=== PATIENT | male | born 1940 | race Caucasian/White ===

== ENCOUNTER 2017-11-16 06:49 | Inpatient (IN) | payer OTHER ==
[~2017-11-16] VITALS: Ht 175.3 cm; Wt 115.7 kg
[~2017-11-16 06:49] MED LIST: HYDR25TA4 PO; LISI40TA PO; METF-370 PO; METO-158 PO; OMEP20TA PO; RIV15T PO; SIMV-13 PO; TEMA30CA PO
[2017-11-16] MEDS ORDERED: fentaNYL CITRATE 100 MCG/2 ML VL ONE (07:22)
[2017-11-16] MEDS ORDERED: MIDAZOLAM HCL 1MG/1ML-2 ML VIAL ONE ×2 (07:23→07:30)
[2017-11-16] MEDS ORDERED: LIDOCAINE 2%HCL (LOCAL ANESTH.) INJ 10ml MDV ONE ×2 (07:24→08:06)
[2017-11-16] MEDS ORDERED: LIDOCAINE VISCOUS 2% 15ML UD PO ONE (07:30)
[2017-11-16] MEDS ORDERED: HYDROmorphone HCL 2 MG/ML VL ONE (08:55)
[2017-11-16] MEDS ORDERED: DRON400T PO (09:49)
[2017-11-16] MEDS ORDERED: ONDANSETRON HCL 4 MG/2 ML VIAL IV PRN (10:00)
[2017-11-16] MEDS ORDERED: PATIENTS OWN MEDICATION (Simvastatin 40 MG) PO SCH (10:00)
[2017-11-16] MEDS ORDERED: NITROGLYCERIN 0.4 MG SL TAB SL PRN (10:00)
[2017-11-16] MEDS ORDERED: RIVAROXABAN 15 MG TAB PO SCH ×2 (10:00→18:00)
[2017-11-16] MEDS ORDERED: PATIENTS OWN MEDICATION (Lisinopril 40 MG) PO SCH (10:00)
[2017-11-16] MEDS ORDERED: PATIENTS OWN MEDICATION (Temazepam 30 MG) PO SCH (10:00)
[2017-11-16] MEDS ORDERED: HYDROcodone-ACET 5/325MG TAB PO PRN (10:00)
[2017-11-16] MEDS ORDERED: TEMAZEPAM 15 MG CAP PO PRN (10:00)
[2017-11-16] MEDS ORDERED: ACETAMINOPHEN 500 MG TAB PO PRN (10:00)
[2017-11-16] MEDS ORDERED: MORPHINE SULF INJ 2 MG/ML SYRINGE 1ML IV PRN (10:00)
[2017-11-16] MEDS ORDERED: METOPROLOL TARTRATE 50 MG TAB PO SCH (10:00)
[2017-11-16] MEDS ORDERED: PATIENTS OWN MEDICATION (Omeprazole (Gnp Omeprazole) 40 MG) PO SCH (10:00)
[2017-11-16] MEDS ORDERED: DRONEDARONE PO SCH (10:00)
[2017-11-16] MEDS: HCTZ 25 MG TAB PO SCH (10:00)
[2017-11-16] MEDS ORDERED: RIVAROXABAN 15 MG TAB PO ONE (10:30)
[2017-11-16] MEDS: PANTOPRAZOLE 40 MG TAB PO SCH (10:30)
[2017-11-16] MEDS: LISINOPRIL 20 MG TAB PO SCH (10:30)
[2017-11-16] MEDS: DRONEDARONE HCL 400 MG TAB PO SCH ×2 (10:30→22:00)
[2017-11-16] MEDS: SODIUM CHLOR 0.9% PF (SALINE LOCK) 10ML VIAL/SYR IV SCH ×2 (16:24→21:35)
[2017-11-16 17:00] VITALS: BP 105/59
[2017-11-16 20:59] VITALS: BP 101/53
[2017-11-16] MEDS ORDERED: PRAVASTATIN SODIUM 20 MG TAB PO SCH (22:00)
[2017-11-17 05:47] VITALS: BP 126/68
[2017-11-17] MEDS: SODIUM CHLOR 0.9% PF (SALINE LOCK) 10ML VIAL/SYR IV SCH (07:30)
[2017-11-17 09:00] VITALS: BP 131/79
[2017-11-17] MEDS ORDERED: RIVAROXABAN 15 MG TAB PO SCH ×2 (10:00→18:00)
[2017-11-17] MEDS ORDERED: METOPROLOL SUCCINATE XL 50 MG TAB PO SCH (10:00)
[2017-11-17] MEDS: LISINOPRIL 20 MG TAB PO SCH (11:01)
[2017-11-17] MEDS: HCTZ 25 MG TAB PO SCH (11:02)
[2017-11-17] MEDS: PANTOPRAZOLE 40 MG TAB PO SCH (11:02)
[2017-11-17] MEDS: DRONEDARONE HCL 400 MG TAB PO SCH (12:00)
[2017-11-17 13:44] VITALS: BP 136/72
== END 2017-11-17 15:10 | disposition home or self-care (01) | DRG 274 ==
LOC: CATH 06:49 → WEST WING 06:50
PROVIDERS: ADMIT Specialist; ATTEND Specialist
PROC: 4A023FZ Measurement of Cardiac Rhythm, Percutaneous Approach (ICD-10-PCS; principal; 2017-11-16)
PROC: 02583ZZ Destruction of Conduction Mechanism, Percutaneous Approach (ICD-10-PCS; 2017-11-16)
PROC: 4A0234Z Measurement of Cardiac Electrical Activity, Percutaneous Approach (ICD-10-PCS; 2017-11-16)
PROC: 02K83ZZ Map Conduction Mechanism, Percutaneous Approach (ICD-10-PCS; 2017-11-16)
PROC: B246ZZ4 Ultrasonography of Right and Left Heart, Transesophageal (ICD-10-PCS; 2017-11-16)
DX: I48.92 Unspecified atrial flutter (principal); I50.32 Chronic diastolic (congestive) heart failure; E66.9 Obesity, unspecified; I48.0 Paroxysmal atrial fibrillation; I08.3 Combined rheumatic disorders of mitral, aortic and tricuspid valves; I70.0 Atherosclerosis of aorta; G47.00 Insomnia, unspecified; M17.9 Osteoarthritis of knee, unspecified; E11.9 Type 2 diabetes mellitus without complications; I10 Essential (primary) hypertension; E78.5 Hyperlipidemia, unspecified; Z82.3 Family history of stroke; Z79.899 Other long term (current) drug therapy; Z86.73 Personal history of transient ischemic attack (TIA), and cerebral infarction without residual deficits; Z87.891 Personal history of nicotine dependence; Z68.37 Body mass index [BMI] 37.0-37.9, adult
CPT/HCPCS: 93005; 93312; 93313; 93613; 93656; 99152; A6257; J2001; J2250

== ENCOUNTER 2017-11-24 12:21 | Inpatient (IN) | payer OTHER, MEDICAID ==
[~2017-11-24] VITALS: Ht 172.7 cm; Wt 118.3 kg
[~2017-11-24 12:21] MED LIST changes: +DRON400T PO
[2017-11-24] MEDS ORDERED: SODIUM CHLORIDE 0.9% 1,000 ML IVB ONE (12:50)
[2017-11-24] MEDS ORDERED: ASPirin 81 mg TAB PO ONE (13:00)
[2017-11-24 13:03] LABS: Basophils # (auto) 0.1 uL; Basophils % (auto) 1.5 % (0.0-2.0); Eosinophils # (auto) 0.1 uL; Eosinophils % (auto) 1.6 % (0.0-7.0); Hematocrit 43.5 % (41.0-53.0); Hemoglobin 14.5 g/dL (13.5-17.5); Lymphocytes # (auto) 1.9 uL; Lymphocytes % (auto) 25.5 % (10.0-50.0); Mean Corpuscular Hemoglobin 29.3 pg (28.0-32.0); Mean Corpuscular Hgb Conc. 33.4 g/dL (32.0-36.0); Mean Corpuscular Volume 87.8 fL (80.0-100.0); Monocytes % (auto) 14.1 % (0.0-12.0); Neutrophils # (auto) 4.2 uL; Neutrophils % (auto) 57.3 % (37.0-80.0); Nucleated Red Blood Cells % 0.1 %; Platelet Count (auto) 232 10^3/uL (140-450); Red Blood Cells 4.95 10^6/uL (4.5-5.90); Red Cell Distribution Width 15.1 % (11.8-14.3); White Blood Cell 7.3 10^3/uL (4.4-10.8)
[2017-11-24 13:16] LABS: INR 1.07 (0.9-1.15); Partial Thromboplastin Time 29.5 sec (23.78-33.04); Prothrombin Time 11.4 sec (9.27-12.13)
[2017-11-24 13:26] LABS: Alanine Aminotransferase 42 U/L (16-61); Albumin 3.7 g/dL (3.4-5.0); Alkaline Phosphatase 69 U/L (45-117); Anion Gap 9 (5-15); Aspartate Aminotransferase 22 U/L (15-37); BUN/Creatinine Ratio 9.3; Bilirubin, Total 0.7 mg/dL (0.2-1.0); Blood Urea Nitrogen 12 mg/dL (7-18); Calcium 8.7 mg/dL (8.5-10.1); Carbon Dioxide 28 mmol/L (21-32); Chloride 106 mmol/L (98-107); GFR African American 70 mL/min; GFR Non-African American 58 mL/min; Glucose 89 mg/dL (74-106); Magnesium 2.2 mg/dL (1.6-2.6); Sodium 143 mmol/L (136-145); Total Protein 7.4 g/dL (6.4-8.2)
[2017-11-24] MEDS ORDERED: OMEPRAZOLE 20MG/10ML ORAL SUSP GT ONE (15:15)
[2017-11-24] MEDS ORDERED: MORPHINE SULF INJ 2 MG/ML SYRINGE 1ML IV PRN (15:15)
[2017-11-24] MEDS ORDERED: NITROGLYCERIN 0.4 MG SL TAB SL PRN (15:15)
[2017-11-24] MEDS: SODIUM CHLORIDE 0.9% 1,000 ML IV SCH (15:16)
[2017-11-24] MEDS ORDERED: PANTOPRAZOLE 40 MG TAB PO ONE (15:30)
[2017-11-24] MEDS: PRAVASTATIN SODIUM 20 MG TAB PO SCH (21:49)
[2017-11-24 22:00] VITALS: BP 142/70
[2017-11-24] MEDS ORDERED: metFORMIN HYDROCHLORIDE 500 MG TAB PO SCH (22:00)
[2017-11-25 05:30] VITALS: BP 146/78
[2017-11-25] MEDS: SODIUM CHLORIDE 0.9% 1,000 ML IV SCH ×3 (06:32→17:15)
[2017-11-25 07:48] LABS: Albumin 3.2 g/dL (3.4-5.0); BUN/Creatinine Ratio 12.1; Bilirubin, Total 0.7 mg/dL (0.2-1.0); Calcium 8.1 mg/dL (8.5-10.1); Potassium 3.8 mmol/L (3.5-5.1); Total Protein 6.6 g/dL (6.4-8.2)
[2017-11-25 07:50] LABS: Basophils # (auto) 0 uL; Basophils % (auto) 0.7 % (0.0-2.0); Eosinophils # (auto) 0.1 uL; Eosinophils % (auto) 1.2 % (0.0-7.0); Hematocrit 44.8 % (41.0-53.0); Hemoglobin 14.6 g/dL (13.5-17.5); Lymphocytes # (auto) 1.3 uL; Lymphocytes % (auto) 20.1 % (10.0-50.0); Mean Corpuscular Hemoglobin 29.4 pg (28.0-32.0); Mean Corpuscular Hgb Conc. 32.6 g/dL (32.0-36.0); Mean Corpuscular Volume 90.3 fL (80.0-100.0); Monocytes # (auto) 0.6 uL; Monocytes % (auto) 10.3 % (0.0-12.0); Neutrophils # (auto) 4.3 uL; Neutrophils % (auto) 67.7 % (37.0-80.0); Nucleated Red Blood Cells % 0.1 %; Platelet Count (auto) 197 10^3/uL (140-450); Red Blood Cells 4.96 10^6/uL (4.5-5.90); Red Cell Distribution Width 15.5 % (11.8-14.3); White Blood Cell 6.3 10^3/uL (4.4-10.8)
[2017-11-25 07:57] LABS: Urine WBC None Seen /hpf (0 - 3)
[2017-11-25] MEDS: metFORMIN HYDROCHLORIDE 500 MG TAB PO SCH ×2 (08:00→18:00)
[2017-11-25 08:32] LABS: Urine Bacteria NONE SEEN /hpf (None Seen); Urine Blood Negative /uL (Negative); Urine Mucus FEW (None Seen); Urine Specific Gravity 1.029 (1.001-1.035)
[2017-11-25 08:43] VITALS: BP 126/67
[2017-11-25] MEDS: HCTZ 25 MG TAB PO SCH (10:00)
[2017-11-25] MEDS ORDERED: LISINOPRIL 20 MG TAB PO SCH (10:00)
[2017-11-25] MEDS ORDERED: PATIENTS OWN MEDICATION PO SCH (10:00)
[2017-11-25 12:56] VITALS: BP 140/73
[2017-11-25] MEDS ORDERED: VANCOMYCIN 1GM/250ML 250 ML IV ONE ×2 (14:00→14:05)
[2017-11-25] MEDS ORDERED: fentaNYL CITRATE 100 MCG/2 ML VL ONE (14:04)
[2017-11-25] MEDS ORDERED: VANCOMYCIN HCL 1000 MG VL ONE (14:04)
[2017-11-25] MEDS ORDERED: MIDAZOLAM HCL 1MG/1ML-2 ML VIAL ONE (14:05)
[2017-11-25] MEDS ORDERED: BACITRACIN INJ 50000 UNIT VIAL ONE (14:05)
[2017-11-25] MEDS ORDERED: LIDOCAINE 2%HCL (LOCAL ANESTH.) INJ 10ml MDV ONE (14:07)
[2017-11-25] MEDS ORDERED: IOHEXOL 350 MG/ML 100ML IJ ONE (14:16)
[2017-11-25] MEDS ORDERED: LIDOCAINE 2% (LOCAL ANESTH.) PF 5ml SDV ONE ×2 (14:47→15:51)
[2017-11-25] MEDS ORDERED: ceFAZolin 1GM/50ML 50 ML IV ONE (16:16)
[2017-11-25] MEDS ORDERED: hydrALAZINE HCL 20 MG/ML VL ONE (16:20)
[2017-11-25] MEDS ORDERED: ceFAZolin 2GM/100ML 100 ML IV ONE (17:00)
[2017-11-25 20:00] VITALS: BP 187/78
[2017-11-25] MEDS ORDERED: PATIENTS OWN MEDICATION (Temazepam 30 MG) PO PRN (21:30)
[2017-11-25] MEDS ORDERED: ATORVASTATIN 20 MG TAB PO SCH (22:00)
[2017-11-25 22:30] VITALS: BP 144/60
[2017-11-25] MEDS: PRAVASTATIN SODIUM 20 MG TAB PO SCH (23:19)
[2017-11-25] MEDS: METOPROLOL TARTRATE 50 MG TAB PO SCH (23:20)
[2017-11-25] MEDS: DOXYCYCLINE 100 MG TAB/CAP PO SCH (23:21)
[2017-11-26] MEDS ORDERED: HYDROcodone-ACET 5/325MG TAB PO PRN
[2017-11-26] MEDS ORDERED: ONDANSETRON HCL 4 MG/2 ML VIAL IV PRN
[2017-11-26] MEDS ORDERED: VANCOMYCIN 1GM/250ML 250 ML IV ONE (01:00)
[2017-11-26] MEDS: SODIUM CHLORIDE 0.9% 1,000 ML IV SCH ×2 (03:15→13:15)
[2017-11-26 05:24] VITALS: BP 141/73
[2017-11-26] MEDS ORDERED: ceFAZolin 2GM/100ML 100 ML IV ONE ×2 (07:00→09:45)
[2017-11-26] MEDS: metFORMIN HYDROCHLORIDE 500 MG TAB PO SCH (08:00)
[2017-11-26 08:40] VITALS: BP 151/70
[2017-11-26] MEDS: DOXYCYCLINE 100 MG TAB/CAP PO SCH (09:30)
[2017-11-26] MEDS: METOPROLOL TARTRATE 50 MG TAB PO SCH (09:33)
[2017-11-26] MEDS: HCTZ 25 MG TAB PO SCH (09:33)
[2017-11-26] MEDS ORDERED: LISINOPRIL 20 MG TAB PO SCH (10:00)
[2017-11-26] MEDS ORDERED: PANTOPRAZOLE 40 MG TAB PO SCH (10:00)
[2017-11-26 14:59] VITALS: BP 146/72
== END 2017-11-26 18:53 | disposition home or self-care (01) | DRG 243 ==
LOC: ER 12:21 → TELE 12:22 → TELE-WESTW 20:35
PROVIDERS: ADMIT Specialist; ATTEND Specialist
PROC: 0JH606Z Insertion of Pacemaker, Dual Chamber into Chest Subcutaneous Tissue and Fascia, Open Approach (ICD-10-PCS; principal; 2017-11-25)
PROC: 02H63JZ Insertion of Pacemaker Lead into Right Atrium, Percutaneous Approach (ICD-10-PCS; 2017-11-25)
PROC: 02HK3JZ Insertion of Pacemaker Lead into Right Ventricle, Percutaneous Approach (ICD-10-PCS; 2017-11-25)
PROC: B5171ZZ Fluoroscopy of Left Subclavian Vein using Low Osmolar Contrast (ICD-10-PCS; 2017-11-25)
PROC: B5161ZZ Fluoroscopy of Right Subclavian Vein using Low Osmolar Contrast (ICD-10-PCS; 2017-11-25)
DX: I49.5 Sick sinus syndrome (principal); I48.92 Unspecified atrial flutter; I50.32 Chronic diastolic (congestive) heart failure; E11.9 Type 2 diabetes mellitus without complications; E66.01 Morbid (severe) obesity due to excess calories; E78.5 Hyperlipidemia, unspecified; I11.0 Hypertensive heart disease with heart failure; I44.0 Atrioventricular block, first degree; I48.0 Paroxysmal atrial fibrillation; M19.90 Unspecified osteoarthritis, unspecified site; Z82.49 Family history of ischemic heart disease and other diseases of the circulatory system; Z85.46 Personal history of malignant neoplasm of prostate; Z79.899 Other long term (current) drug therapy; Z79.01 Long term (current) use of anticoagulants; Z68.39 Body mass index [BMI] 39.0-39.9, adult
CPT/HCPCS: 33208; 36415; 71045; 80053; 81001; 82248; 83735; 83880; 84443; 84484; 85025; 85610; 85730; 86850; 86900; 86901; 93005; 94761; 96360; 99152; A6257; C1785; J0690; J2001; J2250; J2405